=== PATIENT | male | born 1970 ===

== ENCOUNTER 2022-09-08 06:00 | Outpatient (RCR) | payer OTHER, SELFPAY | END 2022-09-20 23:59 | disposition home or self-care (01) | LOC: MPT 06:00 | PROVIDERS: PCP Family Medicine; Visit Provider Family Medicine | DX: M21.372 Foot drop, left foot (principal) | CPT/HCPCS: 97110; 97112; 97161 ==

== ENCOUNTER 2022-09-21 06:00 | Outpatient (RCR) | payer OTHER, SELFPAY | END 2022-10-21 23:59 | disposition home or self-care (01) | LOC: MPT 06:00 | PROVIDERS: PCP Family Medicine; Visit Provider Family Medicine | DX: M21.372 Foot drop, left foot (principal); R26.81 Unsteadiness on feet | CPT/HCPCS: 97110; 97112; 97116 ==

== ENCOUNTER 2022-10-22 06:00 | Outpatient (RCR) | payer OTHER, SELFPAY | END 2022-11-18 23:59 | disposition home or self-care (01) | LOC: MPT 06:00 | PROVIDERS: PCP Family Medicine; Visit Provider Family Medicine | DX: M21.372 Foot drop, left foot (principal) | CPT/HCPCS: 97110; 97112; 97116; 97530 ==

== ENCOUNTER 2022-11-19 06:00 | Outpatient (RCR) | payer OTHER, SELFPAY | END 2022-12-19 23:59 | disposition home or self-care (01) | LOC: MPT 06:00 | PROVIDERS: PCP Family Medicine; Visit Provider Family Medicine | DX: M21.372 Foot drop, left foot (principal) | CPT/HCPCS: 97110; 97112 ==